=== PATIENT | male | born 1995 | race Caucasian/White ===

== ENCOUNTER 2020-11-07 20:58 | Inpatient (IN) ==
[2020-11-08 00:28] LABS: Influenza A PCR Negative (Negative); Influenza B PCR Negative (Negative); Resp. Syncytial Virus PCR Negative (Negative); SARS-CoV-2 by PCR (In House) Negative (Negative)
[2020-11-08] MEDS ORDERED: haloperidoL 5 MG TABLET PO PRN (01:10)
[2020-11-08] MEDS ORDERED: *HR* LORazepam 2 MG/ML VIAL IM PRN (01:10)
[2020-11-08] MEDS ORDERED: *HR* LORazepam 1 MG TABLET PO PRN (01:10)
[2020-11-08] MEDS ORDERED: Haloperidol Lactate 5 MG/ML VIAL IM PRN (01:10)
[2020-11-08] MEDS ORDERED: Nicotine 2 MG GUM BC PRN (03:00)
[2020-11-08] MEDS: Acetaminophen 325 MG TABLET PO PRN (03:01)
[2020-11-08] MEDS: hydrOXYzine pamoate 25 MG CAPSULE PO PRN (03:01)
[2020-11-08] MEDS ORDERED: MOM Conc 10 ML UD.LIQ PO PRN (13:48)
[2020-11-08] MEDS ORDERED: Mag Hydrox/Al Hydrox/Simeth 30 ML UDC PO PRN (13:48)
[2020-11-08] MEDS ORDERED: diazePAM 5 MG TABLET PO ONE (13:49)
[2020-11-08] MEDS: Ibuprofen 400 MG TABLET PO PRN (14:07)
[2020-11-08] MEDS: *HR* LORazepam 1 MG TABLET PO PRN (19:20)
[2020-11-09] MEDS: Ibuprofen 400 MG TABLET PO PRN (06:02)
[2020-11-09] MEDS: *HR* LORazepam 1 MG TABLET PO PRN (15:13)
[2020-11-09] MEDS: hydrOXYzine pamoate 25 MG CAPSULE PO PRN (23:41)
[2020-11-10] MEDS: Acetaminophen 325 MG TABLET PO PRN (07:31)
[2020-11-10 09:24] VITALS: BP 126/83; PULSE 83; TEMP 98.7; O2SAT 96
== END 2020-11-10 10:45 | disposition home or self-care (01) | DRG 751 ==
LOC: EMEROOARM 20:58 → 1ANU 11-08 01:07
PROVIDERS: ADMIT Psychiatry & Neurology Psychiatry; ATTEND Psychiatry & Neurology Psychiatry